=== PATIENT | female | born 2005 | race Caucasian/White ===

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

== ENCOUNTER 2023-12-08 06:34 | Emergency (ER) | payer OTHER ==
[~2023-12-08] VITALS: Ht 175.3 cm; Wt 81.4 kg
[2023-12-08 06:43] VITALS: BP 142/94; TEMP 98.9; O2SAT 100
[2023-12-08] MEDS ORDERED: AMOX500C PO (07:22)
== END 2023-12-08 07:32 | disposition home or self-care (01) ==
LOC: M ED 06:34
DX: H66.91 Otitis media, unspecified, right ear (principal); Z79.2 Long term (current) use of antibiotics